=== PATIENT | male | born 1975 | race Asian ===

== ENCOUNTER 2019-06-30 22:40 | Emergency (ER) | payer OTHER ==
[~2019-06-30] VITALS: Ht 170.2 cm; Wt 96.2 kg
--- NOTE | 2019-06-30 22:55 | NUR ---
PT RECEIVED AMBULATORY W/ STABLE GAIT DENIES PAIN/FEVER/CHILLS/HEADACHE/ NVD NO BROKEN SKIN, PT DENIES BEING SCRATCHED, DENIES GETTING ANY BODY FLUIDS ON FACE ABLE TO SPEAK CLEAR AND COMPLETE SENTENCES MD AT BEDSIDE FOR HX AND PHYSICAL
--- NOTE | 2019-07-01 01:02 | NUR ---
Patient discharged to home in stable conditon. Written and verbal after care instructions given. Patient verbalizes understanding of instructions. AMBULATORY W/ STABLE GAIT ALL BELONGINGS W/ PT
[2019-07-01 02:05] VITALS: BP 114/90
[2019-07-02 05:07] LABS: HEPATITIS B SURFACE AB Reactive (.); HEPATITIS B SURFACE AG Negative (Negative)
== END 2019-07-01 01:02 | disposition home or self-care (01) ==
LOC: ER 22:42
DX: Z77.21 Contact with and (suspected) exposure to potentially hazardous body fluids (principal); E78.00 Pure hypercholesterolemia, unspecified
CPT/HCPCS: 36415; 86706; 86803; 87340; 87806; A4663

== ENCOUNTER 2021-02-14 18:37 | Emergency (ER) | payer OTHER ==
[~2021-02-14] VITALS: Ht 170.2 cm; Wt 98.0 kg
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
--- NOTE | 2021-02-14 20:15 | NUR ---
Patient is a candidate for a Tdap booster. Patient consented to receive this booster shot and signed the consent. Tdap booster lot#[id number] Exp: 04/25/2022 administered in the right deltoid. No complications from the injection.
[2021-02-14] MEDS ORDERED: TDAP DIPH,PERTUSS,TET VAC/PF 0.5 ML DISP.SYRIN IM ONE ×2 (20:26→20:30)
--- NOTE | 2021-02-14 20:30 | NUR ---
Patient discharged from the ER, cleared to return to work. Written and verbal after care instructions given. Patient verbalizes understanding of instructions. Stressed follow up or return to ER for worsening s/s.
[2021-02-14 20:37] VITALS: BP 135/75
== END 2021-02-14 20:30 | disposition home or self-care (01) ==
LOC: ER 18:40
DX: S00.93XA Contusion of unspecified part of head, initial encounter (principal); S10.91XA Abrasion of unspecified part of neck, initial encounter; Y04.2XXA Assault by strike against or bumped into by another person, initial encounter; Y93.89 Activity, other specified; Y92.230 Patient room in hospital as the place of occurrence of the external cause; Y99.0 Civilian activity done for income or pay; Z83.3 Family history of diabetes mellitus; E78.00 Pure hypercholesterolemia, unspecified
CPT/HCPCS: 90715; A4663

== ENCOUNTER 2022-02-12 16:02 | Emergency (ER) | payer OTHER ==
[~2022-02-12] VITALS: Ht 170.2 cm; Wt 81.6 kg
--- NOTE | 2022-02-12 16:36 | NUR ---
Patient discharged to home in stable condition. Written and verbal after care instructions given to patient. Patient verbalizes understanding of instructions. Stressed follow up primary doctor & employee health clinic or return to ER for worsening s/s.
== END 2022-02-12 16:37 | disposition home or self-care (01) ==
LOC: ER 16:03
DX: S10.91XD Abrasion of unspecified part of neck, subsequent encounter (principal); Y08.89XD Assault by other specified means, subsequent encounter; Z77.21 Contact with and (suspected) exposure to potentially hazardous body fluids; Z83.3 Family history of diabetes mellitus
CPT/HCPCS: 36415; 86706; 86803; 87806; A4663